=== PATIENT | female | born 1965 | race Two or more races ===

== ENCOUNTER 2020-05-20 21:37 | Emergency (ER) | payer SELFPAY ==
[~2020-05-20] VITALS: Ht 175.3 cm; Wt 77.5 kg
[2020-05-20] MEDS ORDERED: TETANUS AND DIPHTHERIA TOX/PF 0.5 ML DISP.SYRIN. VAX IM ONE (22:15)
[2020-05-20] MEDS ORDERED: LIDOCAINE 1%/EPI 1:100,000 20 ML VIAL. INJ ONE (22:15)
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
--- NOTE | 2020-05-20 22:39 | RAD ---
EXAM: CT Head without IV contrast CLINICAL HISTORY: Trauma, head injury COMPARISON: None. TECHNIQUE: Routine CT of the head without contrast. PQRS compliance statement - One or more of the following individualized dose reduction techniques were utilized for this study: 1. Automated exposure control 2. Adjustment of the mA and/or kV according to patient size 3. Use of iterative reconstruction technique FINDINGS: There is no evidence of hemorrhage, mass or extra-axial fluid collection. Storey-white differentiation is maintained with no evidence of edema. There is no mass effect or shift of the intracranial structures. The ventricles, basilar cisterns and cortical sulci are normal in size and configuration for the patients stated age. The cerebellum and brainstem are unremarkable. The calvarium demonstrates no evidence of fracture or focal lesion. Mild maxillary sinus thickening, likely sinusitis. Otherwise there is normal aeration of the visualized paranasal sinuses and mastoid air cells. The visualized portions of the orbits are normal. IMPRESSION: 1. No evidence for acute intracranial process. 2. Mild maxillary sinus thickening, likely sinusitis. Electronically signed by: Bong Hogue MD (05/20/2020 10:36 PM) [facility]
[2020-05-20 23:17] VITALS: BP 136/65
== END 2020-05-20 23:38 | disposition home or self-care (01) ==
LOC: ER 21:37
DX: S01.01XA Laceration without foreign body of scalp, initial encounter (principal); W22.8XXA Striking against or struck by other objects, initial encounter; Y93.89 Activity, other specified; Y92.89 Other specified places as the place of occurrence of the external cause; Y99.8 Other external cause status
CPT/HCPCS: 12002; 70450; 90471; 90714; 99284; J3490

== ENCOUNTER 2020-05-28 11:51 | Emergency (ER) | payer SELFPAY ==
[~2020-05-28] VITALS: Ht 157.5 cm; Wt 80.6 kg
[2020-05-28 12:13] VITALS: BP 151/68
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
== END 2020-05-28 12:57 | disposition home or self-care (01) ==
LOC: ER 11:51
DX: S01.01XD Laceration without foreign body of scalp, subsequent encounter (principal); W22.8XXD Striking against or struck by other objects, subsequent encounter
CPT/HCPCS: 99282